=== PATIENT | male | born 1975 | race Caucasian/White ===

== ENCOUNTER 2016-06-22 11:52 | Emergency (ER) | payer BC ==
[2016-06-22 12:42] VITALS: BP 165/100
--- NOTE | 2016-06-22 13:33 | RAD ---
INDICATION: Near syncope. Elevated blood pressure. COMPARISON: November 05, [address] TECHNIQUE: Dual energy PA and routine lateral views of the chest were obtained. REPORT: Elevated lung volumes with increased AP thoracic diameter. Clear lungs and pleural spaces. Negative for pneumothorax. Small calcified LEFT hilar lymph node noted. Negative for cardiomegaly. Unremarkable central pulmonary vasculature. IMPRESSION: Stigmata of potential chronic obstructive pulmonary disease and previous granulomatous disease. No acute cardiopulmonary process evident.
--- NOTE | 2016-06-22 13:50 | UC ---
Ryan Rubin SooYoung, scribed for [facility] on 06/22/16 at 1223 . Hypertension HPI - HPI Summary HPI Summary: NOTE: A 41 y/o M with anxiety and HTN, who doubled up on his dose of Losarten , and is concerned about waking with a feeling of his heart racing comes to [facility] for evaluation. Vital signs are stable. Pulse is 88 bpm. Initial BP is 173/97. Pulse ox is 100. Pt states he chews tobacco, does not smoke, and drinks 4-6 drinks / day. Previous visits listed in EMR non-contributory. Pt has no allergies. PMHx: HTN. NURSE'S NOTE: pt woke up this morning with a feeling of edgy and heart racing and stated it felt like a "panic attack" he checked his blood pressure and it was high... 170's /110 as per patient so he took 2 of his rx of losartan 100mg at 0600. pt states he has a feeling like "something really bad is going to happen" [ End ] IN ROOM NOTE: A 41 y/o M presents to E after hypertensive episode this AM approx 0600. Associated sx; lightheadedness, diaphoresis, nauseous. Negative LOC , syncope, vomiting, WHALEY, SOB. Pt states he was relaxing yesterday, watching TV. He says it was a "long weekend of drinking." It took about 30 mins before the feeling went away. He was able to fall back asleep. He then woke up, drank some water, but was feeling anxious. Denies recent illness. No prev PMHx of panic attacks or vertigo. Denies overnight hospitalizations. Dr. Petit is his PCP. - History of Current Complaint Chief Complaint: UCGeneralIllness Stated Complaint: BP UP PANIC ATTACK Hx Obtained From: Patient Onset/Duration: Sudden Onset, Resolved Associated Signs And Symptoms: Positive: Anxiety, Dizziness - lightheadedness. Negative: Headaches, SOB - Allergies/Home Medications Allergies/Adverse Reactions: Allergies Allergy/AdvReac Type Severity Reaction Status Date / Time No Known Allergies Allergy Verified 08/05/14 12:32 Home Medications: Home Medications Losartan/HCTZ 100/25 (NF) [Hyzaar 100/25 (NF)] 1 tab PO DAILY 06/22/16 [History Confirmed 06/22/16] PMH/Surg Hx/FS Hx/Imm Hx Previously Healthy: Yes Cardiovascular History Of: Reports: Hypertension - Surgical History Surgical History: None - Family History Known Family History: Positive: Cardiac Disease, Hypertension - Social History Occupation: Employed Full-time Lives: With Family Alcohol Use: Daily Alcohol Amount: 4-6 drinks per day/ vodka Substance Use Type: None Smoking Status (MU): Never Smoked Tobacco Amount Used/How Often: 1/2 can per day Review of Systems Constitutional: Negative Skin: Negative Eyes: Negative ENT: Negative Respiratory: Negative Cardiovascular: Other - hypertensive issue Gastrointestinal: Other - NAUSEA, MILD Genitourinary: Negative Motor: Negative Neurovascular: Negative Musculoskeletal: Negative Neurological: Other - LIGHTHEADEDNESS Psychological: Anxious All Other Systems Reviewed And Are Negative: Yes Physical Exam Triage Information Reviewed: Yes Appearance: Well-Appearing, No Pain Distress, Well-Nourished Vital Signs: Initial Vital Signs Temp 96.8 F 06/22/16 11:55 Pulse 88 06/22/16 11:55 Resp 20 06/22/16 11:55 BP 173/97 06/22/16 11:55 Pulse Ox 100 06/22/16 11:55 Vital Signs Reviewed: Yes Eyes: Positive: Conjunctiva Clear, Other: - EOMI, PERRL, no nystagmus ENT: Positive: Hearing grossly normal, Pharynx normal, TMs normal. Negative: Muffled/hoarse voice Neck: Positive: Supple, No Lymphadenopathy Respiratory: Positive: Chest non-tender, Lungs clear, Normal breath sounds, No respiratory distress Cardiovascular: Positive: RRR, No Murmur Abdomen Description: Positive: Nontender, No Organomegaly, Soft Bowel Sounds: Positive: Present Musculoskeletal: Positive: Strength Intact, Other: - CROUCH Neurological: Positive: Alert, Other: - A&O x3; cranial nerves intact, Psychological: Positive: Age Appropriate Behavior Skin: Negative: rashes Diagnostics - Radiology CXR Xray Interpretation: Positive (See Comments) - IMPRESSION: Stigmata of potential chronic obstructive pulmonary disease and previous granulomatous disease. No acute cardiopulmonary process evident. Radiology Interpretation Completed By: Radiologist - EKG Cardiac Rate: NL Cardiac Rhythm: Sinus: Normal - no ischemia, LVH, Other Rhythm: Normal Hypertension Course/Dx - Course Course Of Treatment: MDM: A 41 y/o M, who drinks a significant amount daily, complains of what sounds like a near-syncopal episode, when he arose from bed this AM. He was dizzy but did not LOC. Did not have visual symptoms. No nausea. No evidence this was a sz. He laid down and the condition resolved in approx. 30 mins. He has a PMHx of HTN and decided to take 2 Lasorten 100mg. In the [facility], orthostatics showed elevated BP as high as 168/101 with no drop on position change. Pt pulse decreased from 98 to 83 on position change. I discussed with pt that this could be a problem with his hydration status, or his drinking. I encouraged him to discuss this with his PCP, to rest today and to hydrate. His EKG suggests LVH but shows no acute ischemia. Pt with near syncopal episode and EKG suggesting LVH appears to have had a vasovagal or orthostatic episode. His hx is significant for probable alcoholism and he may be dehydrated. He also has HTN, and borderline LVH. His CXR shows possible COPD and previous granulomatous disease. He is a prather. Pt chews but does not smoke tobacco. - Differential Dx/Diagnosis Differential Diagnosis/HQI PQRI: Hypertensive Urgency, Other - vasovagal episode Provider Diagnoses: 1. Near syncope: vasovagal vs orthostatic hypertension. 2. Alcoholism. 3. HTN. Discussed with pt and to f/u with PCP. They have a copy of CXR and EKG. Discharge - Discharge Plan Condition: Stable Disposition: HOME Patient Education Materials: Hypertension (ED), Alcohol Dependence (ED), Alcohol Use Disorder (ED) Referrals: Jn Petit MD [Primary Care Provider] - Additional Instructions: WE DISCUSSED: KEEP HYDRATED WITH WATER, DILUTED GATORADE OR FLAT 7UP. MOVE SLOWLY OVER THE NEXT DAY YOU CHANGE POSITIONS. FOLLOW UP WITH DR. PETIT FOR ANOTHER EKG WITHIN THE NEXT 3 MONTHS, AND TO CHECK YOUR ORTHOSTATICS. ALSO, CREATE A PLAN TO DECREASE YOUR ALCOHOL INTAKE AND TREAT HYPERTENSION. YOU HAVE A COPY OF YOUR X RAY AND EKG. IF YOU HAVE A REPEAT EPISODE, GO TO EMERGENCY DEPARTMENT. The documentation as recorded by the Ryan resendiz SooYoung accurately reflects the service I personally performed and the decisions made by me, Jaswinder Husain MD.
== END 2016-06-22 14:04 | disposition home or self-care (01) ==
LOC: UCEAST 11:52
DX: R55 Syncope and collapse (principal); F10.20 Alcohol dependence, uncomplicated; I10 Essential (primary) hypertension; F17.220 Nicotine dependence, chewing tobacco, uncomplicated
CPT/HCPCS: 71020; 93005; 99212; G0463

== ENCOUNTER 2023-11-12 14:29 | Inpatient (IN) ==
[2023-11-12 16:21] LABS: ABS Neutrophils 4.9 10^3/uL (1.5-7.6); Platelet Count 125 10^3/uL (150-450); White Blood Count 6.7 10^3/uL (3.6-10.2)
[2023-11-12 17:16] LABS: Calcium 9.1 mg/dL (8.6-10.3); Creatinine, Serum 0.72 mg/dL (0.67-1.17); Magnesium 1.2 mg/dL (1.9-2.7); Potassium 3.1 mmol/L (3.5-5.0)
[2023-11-12] MEDS ORDERED: Ondansetron ODT 4 mg TAB 4 MG TAB PO PRN (18:02)
[2023-11-12 18:26] LABS: Osmolality Serum 264 mOsm/kg (275-295)
[2023-11-12 18:39] LABS: Urine Appearance Clear; Urine Bilirubin Negative (Negative); Urine Blood Negative (Negative); Urine Color Colorless; Urine Glucose Negative (Negative); Urine Ketones Negative (Negative); Urine Nitrite Negative (Negative); Urine Protein Negative (Negative); Urine Specific Gravity 1.002 (1.002-1.030); Urine Urobilinogen Negative (Negative)
[2023-11-12 18:43] LABS: C Reactive Protein 5.29 mg/L (<8.01); HDL Cholesterol 41.4 mg/dL; Total Bilirubin 1.8 mg/dL (0.2-1.0)
[2023-11-12 18:56] LABS: ABS Eosinophils 0.1 10^3/uL (0.0-0.5); ABS Lymphocytes 1.1 10^3/uL (1.0-4.8); ABS Monocytes 0.5 10^3/uL (0.0-1.1); ABS Nucleated RBC 0.02 10^3/ul; Eosinophil % 0.8 %; Nucleated Red Blood Cells % 0.3 %/100WBC (0.0-0.8)
[2023-11-12 18:57] LABS: TSH Ultra Thyroid Stim Horm 0.5 mcIU/mL (0.34-5.60)
[2023-11-12] MEDS: Thiamine 100 MG/ML 2 ml VIAL (200 mg) IM ONE (18:57)
[2023-11-12] MEDS: Magnesium Sulf 4 GM/100 ML IV 4,000 MG/100 ML BAG IVPB ONE (18:58)
[2023-11-12 19:10] LABS: Urine Osmo < 100 mOsm/kg (150-1150)
[2023-11-12 19:30] LABS: Hematocrit 36.9 % (38-53); Hemoglobin 14.3 g/dL (13.2-16.3); Mean Corpuscular Hemoglobin 37.4 pg (27-33); Mean Corpuscular Hgb Conc 38.8 g/dL (31-36); Mean Corpuscular Volume 96.4 fL (80-97); Red Blood Count 3.82 10^6/uL (4.06-5.63); Red Cell Distribution Width 16.4 % (12-17)
[2023-11-12 19:31] LABS: Hematocrit 35.7 % (38-53); Hemoglobin 13.6 g/dL (13.2-16.3); Mean Corpuscular Hemoglobin 36.7 pg (27-33); Mean Corpuscular Volume 96.5 fL (80-97); Mean Platelet Volume 6.1 fL (7.5-11.2); Platelet Count 116 10^3/uL (150-450); Red Blood Count 3.71 10^6/uL (4.06-5.63); Red Cell Distribution Width 16.9 % (12-17); White Blood Count 5.1 10^3/uL (3.6-10.2)
[2023-11-12 21:51] LABS: Calcium 9.5 mg/dL (8.6-10.3); Creatinine, Serum 0.74 mg/dL (0.67-1.17); Potassium 3.1 mmol/L (3.5-5.0); eGFR CKD-EPI 111.1 (>60)
[2023-11-13 01:58] LABS: Calcium 9.3 mg/dL (8.6-10.3); Creatinine, Serum 0.8 mg/dL (0.67-1.17); Potassium 2.9 mmol/L (3.5-5.0); eGFR CKD-EPI 108.5 (>60)
[2023-11-13] MEDS: Potassium Chlor 20 meq TAB.ER PO SCH (06:11)
[2023-11-13 06:38] LABS: Calcium 9.4 mg/dL (8.6-10.3); Creatinine, Serum 0.75 mg/dL (0.67-1.17); eGFR CKD-EPI 110.6 (>60)
[2023-11-13 07:22] LABS: Magnesium 2.1 mg/dL (1.9-2.7)
[2023-11-13] MEDS: Multivitamins/Minerals TAB PO SCH (09:15)
[2023-11-13] MEDS: D5W 1000 ml BAG 1,000 ML IV ONE (09:20)
[2023-11-13] MEDS: D5W 1000 ml BAG 1,000 ML IV SCH (09:38)
[2023-11-13 12:02] LABS: Calcium 9.6 mg/dL (8.6-10.3); Creatinine, Serum 0.9 mg/dL (0.67-1.17); Potassium 3.8 mmol/L (3.5-5.0); eGFR CKD-EPI 104.7 (>60)
[2023-11-13 15:20] LABS: Calcium 10.3 mg/dL (8.6-10.3); Creatinine, Serum 0.92 mg/dL (0.67-1.17); Potassium 3.7 mmol/L (3.5-5.0)
[2023-11-13 20:33] LABS: Calcium 10.3 mg/dL (8.6-10.3); Creatinine, Serum 1.19 mg/dL (0.67-1.17); Potassium 4.2 mmol/L (3.5-5.0); eGFR CKD-EPI 74.9 (>60)
[2023-11-13] MEDS: Enoxaparin 40 MG/0.4 ML SYR SUBCUT SCH (21:06)
[2023-11-14 06:10] LABS: Calcium 9.7 mg/dL (8.6-10.3); Creatinine, Serum 1.08 mg/dL (0.67-1.17); eGFR CKD-EPI 84.1 (>60)
[2023-11-14 10:10] VITALS: BP 120/84
== END 2023-11-14 10:45 | disposition home or self-care (01) | DRG 425 ==
LOC: ED 14:29 → SUATTDRO 17:27 → EDHOLD 17:27 → ICU 19:53 → MEDTELE 11-13 15:03
PROVIDERS: ADMIT Student in an Organized Health Care Education/Training Program; ATTEND Hospitalist